=== PATIENT | female | born 1995 | race Caucasian/White ===

== ENCOUNTER → 2019-01-14 | Outpatient (CLI) | payer OTHER ==
--- NOTE | 2019-01-14 15:34 | KCIC ---
EXAMINATION: Magnetic resonance imaging (MRI) of the cervical spine without contrast 01/14/2019 2:00 PM HISTORY: Cervicalgia TECHNIQUE: Multiplanar multi-weighted MRI of the cervical spine was performed without intravenous contrast using the standard cervical spine protocol. Contrast information: None administered COMPARISON: None available. FINDINGS: The alignment of the cervical spine is normal. Vertebral bodies demonstrate normal signal intensity on all sequences. No acute fracture is identified; however, if trauma is suspected, a CT scan would be a more sensitive examination for fractures. The craniocervical junction is normal. The visualized portions of the skull base and the posterior fossa are normal. The spinal cord demonstrates normal signal intensity on all sequences. There is mild disc height loss at C3-C4, C5-C6 and C6-C7 with disc bulges and annular fissures at these levels. No soft tissue abnormality is identified. Normal signal voids are present in the vertebral arteries. C2-C3: The disk is normal in configuration. There is no facet arthropathy. There is no uncovertebral joint disease. There is no neuroforaminal stenosis. There is no spinal canal stenosis. C3-C4: There is mild disc bulge. There is no facet arthropathy. There is no uncovertebral joint disease. There is no neuroforaminal stenosis. There is no spinal canal stenosis. C4-C5: The disk is normal in configuration. There is no facet arthropathy. There is no uncovertebral joint disease. There is no neuroforaminal stenosis. There is no spinal canal stenosis. C5-C6: There is a disc bulge with central disc extrusion extending inferiorly. There is mild facet arthropathy. There is no uncovertebral joint disease. There is mild left neuroforaminal stenosis. There is mild spinal canal stenosis. C6-C7: There is a right central disc extrusion. There is no facet arthropathy. There is no uncovertebral joint disease. There is mild right neuroforaminal stenosis. There is moderate spinal canal stenosis with mild deformity of the cord. No cord signal alteration. C7-T1: There is shallow disc protrusion. There is no facet arthropathy. There is no uncovertebral joint disease. There is no neuroforaminal stenosis. There is no spinal canal stenosis. IMPRESSION: Disc herniations are identified at C5-C6 and C6-C7, as described in detail above. Electronically signed by: Odalis Ovalles MD (01/14/2019 3:31 PM) [id number]
== END | disposition home or self-care (01) ==
LOC: KCIC MRI 13:50
PROVIDERS: ATTEND Physician Assistant Medical
DX: M50.23 Other cervical disc displacement, cervicothoracic region (principal); M48.02 Spinal stenosis, cervical region; M43.8X2 Other specified deforming dorsopathies, cervical region; M12.88 Other specific arthropathies, not elsewhere classified, other specified site
CPT/HCPCS: 72141